=== PATIENT | male | born 1985 | race Caucasian/White ===

== ENCOUNTER → 2024-01-19 13:42 | Outpatient (REF) | payer BC, SELFPAY | LOC: RCS 13:42 | PROVIDERS: ATTENDING PHYSICIAN Internal Medicine; FAMILY PHYSICIAN Family Medicine | DX: I30.0 Acute nonspecific idiopathic pericarditis (principal); I37.1 Nonrheumatic pulmonary valve insufficiency | CPT/HCPCS: 93306 ==